=== PATIENT | female | born 1975 | race Caucasian/White ===

== ENCOUNTER 2022-03-06 19:26 | Emergency (ER) | payer SELFPAY | END 2022-03-06 21:08 | disposition home or self-care (01) | LOC: JP.ED 19:26 | DX: H66.003 Acute suppurative otitis media without spontaneous rupture of ear drum, bilateral (principal) | CPT/HCPCS: 99282; 99283 ==

== ENCOUNTER 2022-06-01 22:25 | Emergency (ER) | payer SELFPAY ==
[2022-06-01] MEDS ORDERED: LORazepam 0.5 MG Tab PO ONE (23:03)
== END 2022-06-02 00:14 | disposition home or self-care (01) ==
LOC: JP.ED 22:25
DX: E87.6 Hypokalemia (principal); F43.9 Reaction to severe stress, unspecified; F41.0 Panic disorder [episodic paroxysmal anxiety]; I10 Essential (primary) hypertension; F17.210 Nicotine dependence, cigarettes, uncomplicated; Z79.899 Other long term (current) drug therapy; Z90.710 Acquired absence of both cervix and uterus
CPT/HCPCS: 36415; 80048; 85025; 99283; A9270

== ENCOUNTER 2023-09-21 05:04 | Emergency (ER) | payer SELFPAY ==
[2023-09-21 05:54] LABS: BASOPHILS ABSOLUTE AUTO 0.05 K/uL (0.00-0.10); BASOPHILS PERCENT AUTO 0.6 % (0.1-1.3); EOSINOPHILS ABSOLUTE AUTO 0.34 K/uL (0.00-0.40); EOSINOPHILS PERCENT AUTO 4.1 % (0.0-5.4); HEMATOCRIT 52.6 % (34.3-46.0); IMMATURE GRAN ABSOLUTE AUTO 0.04 K/uL (0.00-0.23); IMMATURE GRAN PERCENT AUTO 0.5 % (0.0-0.7); LYMPHOCYTES ABSOLUTE AUTO 1.87 K/uL (0.8-3.3); LYMPHOCYTES PERCENT AUTO 22.4 % (11.4-47.7); MEAN CORPUSCULAR HEMOGLOBIN 36.5 pg (31.6-35.5); MEAN CORPUSCULAR HGB CONC 37.1 g/dL (31.6-35.5); MEAN CORPUSCULAR VOLUME 98.5 fL (81.4-99.0); MONOCYTES ABSOLUTE AUTO 0.62 K/uL (0.20-0.90); MONOCYTES PERCENT AUTO 7.4 % (3.3-12.6); NEUTROPHILS ABSOLUTE AUTO 5.44 K/uL (1.0-7.6); PLATELET COUNT,PLT 160 K/uL (130-375); RED BLOOD CELL COUNT 5.34 M/uL (3.77-5.24); WHITE BLOOD CELL COUNT,WBC 8.4 K/uL (3.2-11.0)
[2023-09-21 05:56] LABS: CHLORIDE,CL 88 mmol/L (100-108); POTASSIUM,K 3.7 mmol/L (3.6-5.2)
[2023-09-21 05:59] LABS: HEMOGLOBIN 19.5 g/dL (11.2-15.5)
[2023-09-21 06:14] LABS: ANION GAP 10.7 mmol/L (5.0-14.0); BLOOD UREA NITROGEN,BUN 6 mg/dL (7-18); C-REACTIVE PROTEIN < 0.50 mg/dL (<0.50); CALCIUM 8.2 mg/dL (8.5-10.1); CARBON DIOXIDE,CO2 25 mmol/L (21-32); CREATININE 0.6 mg/dL (0.6-1.0); EST CRCL DRUG DOSING (CG) 108.69 mL/min; ESTIMATED GFR 113 mL/min (>60); GLUCOSE RANDOM 117 mg/dL (74-106); SODIUM,NA 120 mmol/L (140-148); TROPONIN I HIGH SENSITIVITY 4.4 pg/mL (<=60.3)
[2023-09-21] MEDS ORDERED: Sodium Chloride 0.9% 1,000 ML IV SCH (06:15)
[2023-09-21] MEDS ORDERED: Iopamidol 612 MG/ML 100 ML Bottle IV ONE (06:34)
[2023-09-21 06:40] LABS: A/G RATIO 0.9 (1.2-2.2); ALBUMIN 3.3 g/dL (3.4-5.0); BILIRUBIN DIRECT 0.31 mg/dL (0.0-0.2); BILIRUBIN INDIRECT 1.29; BILIRUBIN TOTAL 1.6 mg/dL (0.2-1.0); PROTEIN TOTAL,TP 7.1 g/dL (6.4-8.2)
[2023-09-21] MEDS ORDERED: Sodium Chloride 0.9% 80 ML IV SCH (06:45)
== END 2023-09-21 08:26 | disposition home or self-care (01) ==
LOC: JP.ED 05:04
DX: R07.89 Other chest pain (principal); E87.1 Hypo-osmolality and hyponatremia; F17.210 Nicotine dependence, cigarettes, uncomplicated; I10 Essential (primary) hypertension; Z79.899 Other long term (current) drug therapy
CPT/HCPCS: 36415; 71260; 74177; 80048; 80076; 83605; 84484; 85025; 85379; 86140; 93005; 99285; J3490; J7030; Q9967